=== PATIENT | female | born 1995 | race Caucasian/White ===

== ENCOUNTER 2020-10-24 21:12 | Emergency (ER) | payer MEDICAID, OTHER ==
[~2020-10-24] VITALS: Ht 175.3 cm; Wt 95.1 kg
[~2020-10-24 21:12] MED LIST: CELEXA; ZOF4T PO
[2020-10-24 21:20] VITALS: BP 150/100
== END 2020-10-24 22:29 | disposition left against medical advice (07) ==
LOC: ER 21:13
DX: R21 Rash and other nonspecific skin eruption (principal); R19.7 Diarrhea, unspecified; Z53.21 Procedure and treatment not carried out due to patient leaving prior to being seen by health care provider